=== PATIENT | male | born 1960 | race Caucasian/White ===

== ENCOUNTER → 2019-08-09 | Outpatient (CLI) | payer BC ==
--- NOTE | 2019-08-09 15:40 | CONS ---
CONSULTATION REASON FOR CONSULTATION: Insomnia. This is a 58-year-old male patient who is having problems with his sleep and the patient is feeling fatigued and tired during the day. This patient has been having this issue since 2011. He was diagnosed as having an arachnoid cyst that was drained at [facility]. This was a neurosurgical intervention. Since then, the patient has not been able to sleep as good as he used to prior to that. Note that the tells me that prior to his surgery he used to sleep excessively and now he is having difficulties in sleep induction and maintenance. He has seen his primary care physician on multiple occasions in that regard and currently he is taking melatonin 10 mg at bedtime and trazodone 25 mg p.o. at bedtime was also given to him. He is waking up feeling drowsy and sleepy. He tells me that he is not going into deeper phases of sleep. He has undergone a polysomnography at [facility] and he was felt not to have any significant sleep apnea. Upon further questioning, the patient is a copier field service technician for an [employer] and is very busy and stressful. Apparently, he has a lot of responsibilities at his work. He travels quite a bit and he goes to different time zones. During traveling, his sleep quality even gets worse. For now, while staying in [place] at home, he goes to bed around 10:00 p.m. and he gets out of bed at around 4:00 in the morning. He is able to initiate sleep, however, he has frequent nighttime arousals. At times, it takes him more than 30 minutes to fall asleep. He tells me that his mind races and he thinks of different scenarios, mainly work related. He sometimes does computer work in his bedroom environment. No excessive intake of caffeinated beverages, especially in the afternoon or evening. No heavy meals. No exercise. He has been diagnosed with having depression more than 25 years ago. He has been on and off treatment and is currently off treatment. No feeling of anhedonia or worthlessness. No significant anxiety at this point, yet he is under quite a bit of stress. No reported symptoms to suggest restless legs syndrome. No panic attacks. No palpitation. No nighttime heartburn. He is waking up tired and has trouble with memory and concentration. No focal neurological deficit. No problems with rigidity or tremors. No history of any motor vehicle accident because of feeling drowsy or sleepy and he drives long distances without a need to fall asleep. His current [place] score is at 9. No head trauma. No substance abuse. No other medical problems. PAST MEDICAL HISTORY: 1. History of arachnoid cyst that was drained. 2. History of depression, treated in the past, none for now. PAST SURGICAL HISTORY: Craniotomy for an arachnoid cyst. SOCIAL HISTORY: The patient is a nonsmoker. He drinks alcohol on weekends. No history of substance abuse. OUTPATIENT MEDICATION LIST: Includes trazodone 25 mg and melatonin 10 mg. FAMILY HISTORY: Negative for insomnia. Positive for hypertension and heart troubles, as well as stroke. REVIEW OF SYMPTOMS: Fourteen-point review of systems was done and the positive findings are all mentioned above in the history of present illness. BP is 130/74, pulse 66, respirations 16, temperature is 98.2, saturation 98% on room air, height is 5 feet 9 inches, weight is 184, and BMI is 27.1. Neck size is 15.5 inches. GENERAL APPEARANCE: Calm and comfortable. Head is atraumatic, normocephalic. NECK: Supple. No JVD. No goiter or neck masses. LUNGS: Clear to auscultation. HEART: Heart sounds are regular rate and rhythm. Normal S1, S2. No S3, S4. No murmurs. ABDOMEN: Soft and nontender. No organomegaly. EXTREMITIES: No edema. No cyanosis or clubbing. NEUROLOGIC: He is awake and alert and there is no focal neurological deficit. PSYCHIATRIC: Negative for anxiety. Positive for history of depression. IMPRESSION: Chronic insomnia, which is most likely related to some degree of stress and anxiety, in addition to further exacerbation by poor sleep hygiene measures. Doubt any primary insomnia. Doubt any underlying neurologic disorders contributing to this, despite the fact that the patient's symptoms developed after drainage of an arachnoid cyst back in 2011. PLAN: I had a lengthy discussion with the patient. The patient has significant amount of stress and his stress is mainly related to his work that needs a lot of phone calls and a lot of responsibilities, in addition to traveling. He is unable to shut down his mind and is unable to relax at nighttime. He is unable to separate between his job and his sleep. This has led into further worsening of his sleep hygiene measures. I counseled the patient and he would need also further counseling regarding relaxation techniques and separation of his work activities from sleep. We discussed issues related to sleep hygiene measures. We discussed avoiding alcoholic beverages or caffeine later in the afternoon. We discussed light dinners and an exercise program. In terms of sleep promotion, we discussed about some of the therapy and cognitive behavioral therapies. I do not think we need to implement any sleep restriction or stimulus control for this patient. It seems that he has been able to generate a good 4 to 5 hours of sleep for now. I think addition of Xanax 0.5 mg will take a lot of his anxiety and stress and may further promote sleep. This is not a long-acting agent and should not give him any daytime drowsiness. Recommend stopping the trazodone for now. He will keep a sleep diary. We will implement good sleep hygiene measures. We will recommend sleep-assisting mucic tunes at nighttime. The patient will see me back in a few months' time for further advice. Appropriate literature was given regarding insomnia treatment. The patient will also send me a copy of his polysomnography that was done at [facility] for review and make further recommendations should there be any other abnormalities noted. MMODL / IJN: [id number] /
== END ==
LOC: SLEEP 10:43
PROVIDERS: ATTEND Internal Medicine Critical Care Medicine
DX: G47.00 Insomnia, unspecified (principal); Z79.899 Other long term (current) drug therapy
CPT/HCPCS: 99201